=== PATIENT | male | born 2005 | race Caucasian/White ===

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

== ENCOUNTER 2024-08-20 17:10 | Emergency (ER) | payer BC, SELFPAY ==
--- NOTE | ~2024-08-20 | XR_ITS ---
HISTORY: hit with brady, posterior and lateral knee pain COMPARISON: None TECHNIQUE: 4 views of the right knee were performed FINDINGS: No acute or subacute fracture, erosion, lytic or sclerotic lesion. Medial tibiofemoral joint space narrowing is identified. Small suprapatellar joint effusion is identified. The infrapatellar joint space is clear. IMPRESSION: Small suprapatellar joint effusion, without acute fracture. Reviewed, dictated and finalized at location A. 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
[2024-08-20 17:19] VITALS: BP 145/73; PULSE 81; RESP 18; TEMP 37; O2SAT 100
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
== END 2024-08-20 18:45 | disposition home or self-care (01) ==
PROVIDERS: Emergency Provider Nurse Practitioner Family; PCP Family Medicine
DX: M25.461 Effusion, right knee (principal)
CPT/HCPCS: 73564; 99213; G0463

== ENCOUNTER 2024-08-23 11:26 | Emergency (ER) | payer BC, SELFPAY | END 2024-08-23 11:42 | disposition left against medical advice (07) | PROVIDERS: PCP Family Medicine | DX: M25.561 Pain in right knee (principal) | CPT/HCPCS: 99199 ==

== ENCOUNTER 2024-11-03 16:41 | Emergency (ER) | payer BC, SELFPAY ==
--- OUTSIDE RECORDS SUMMARY | 2024-11-03 16:45 | XMS_ITS | Clinical Summary ---
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 Social History Tobacco Use Types Packs/Day Years Used Date Smoking Tobacco: Never Smokeless Tobacco: Never Alcohol Use Standard Drinks/Week Comments Never 0 (1 standard drink = 0.6 oz pur e alcohol) Adolescent Education Answer Date Record ed Getting School Help Needed Not on file 05/11 Sex and Gender Information Value Date Recorded Sex Assigned at Not on file 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 Gender Identity Not on file Sexual Orientation Not on file Last Filed Vital Signs Vital Sign Reading Time Taken Comments Blood Pressure 112/58 02/21/2022 3:55 PM CDT Pulse 58 02/21/2022 3:55 PM CDT Temperature 37.1 ??C (98.7 ??F) 02/21/2022 3:55 PM CD T Respiratory Rate 16 02/21/2022 3:55 PM CDT Oxygen Saturation 97% 02/21/2022 3:55 PM CDT Inhaled Oxygen Concentration - - Weight 65.3 kg (144 lb) 02/21/2022 10:55 AM CDT Height 170.2 cm (5' 7 ) 02/21/2022 10:55 AM CDT Body Mass Index 22.55 02/21/2022 10:55 AM CDT Plan of Treatment Health Maintenance Due Date Last Done Comments CHLAMYDIA SCREENING (ANNUAL) 11-24 YEARS 2014 INFLUENZA VACCINE (#1) 2024 , 06/25/2019, 07/27/2016 DTAP/TDAP/TD VACCINES (7 - Td or Tdap) 07/17/2025 07/17/2015, 01/22/2008, 03/26/2005, Additional history exists HEPATITIS B VACCINES Completed 06/15/2004, 03/31/2004, 02/04/2004 PNEUMOCOCCAL VACCINE 0-64 YEARS Aged Out 03/26/2005, 09/11/2004, 03/31/2004, Additional history exists No longer eligible based on patient's age to complete this topic HPV VACCINES Completed 06/25/2019, 05/20/2018 Medical Devices Implanted Type Area Executive Chef Device Identifier Shelf Expiration Date Model / Serial / Lot Plate-L Lp Lt Med 0.6mm 50-377-04 - [id number] Implanted:Qty: 1 on 09/27/2021 by Jeremi Grant MD at [facility] Plate Left: Maxilla PHU CALVO 50-377-04- 91 / / Plate-L Lp Rt Med 0.6mm -375-04 - [id number] Implanted:Qty: 1 on 09/27/2021 by Jeremi Grant MD at [facility] Plate Right: Maxilla PHU CALVO 50-375-04- 91 / / Plate-L Mini 7h Rt 28-324-81-09 - [id number] Implanted:Qty: 1 on 09/27/2021 by Jeremi Grant MD at [facility] Plate Right: Maxilla PHU CALVO 50-405-07- 09 / / Plate-L Mini 7h Lt 50-407-07 - [id number] Implanted:Qty: 1 on 09/27/2021 by Jeremi Grant MD at [facility] Plate Left: Maxilla BRANDONS LUBNA 50-407-07- 09-OL / / Screw Sd Maxdr 2.0x5mm 25-879-05-1 - [id number] Implanted:Qty: 21 on 09/27/2021 by Jeremi Grant MD at [facility] Screw N/A: Maxilla BRANDONS LUBNA 879- / / Description:BILATERAL Screw Sd Maxdr 2.0x7mm -- - [id number] Implanted:Qty: 9 on 09/27/2021 by Jeremi Grant MD at [facility] Screw N/A: Maxilla BRANDONS LUBNA / / Description:BILATERAL Screw St Maxdr 2.0x9mm -- - [id number] Implanted:Qty: 1 on 09/27/2021 by Jeremi Grant MD at [facility] Screw N/A: Face BRANDONS [facility] / / Explanted Type Area Executive Chef Device Identifier Shelf Expiration Date Model / Serial / Lot Plate Sgtl Rgd Matthew Crv --36 - [id number] Implanted:Qty: 2 on 09/27/2021 by Jeremi Grant MD at [facility] Explanted:Qty: 2 on 02/21/2022 by Jeremi Grant MD at [facility] Plate N/A: Mandible BRANDONS LUBNA -3 / Description:BILATERAL Screw Sd Maxdr 2.0x7mm --1 - [id number] Implanted:Jeremi Du MD (Quantity not on file) Explanted:Qty: 2 on 09/27/2021 by Jeremi Grant MD at [facility] Screw N/A: Face BRANDONS LUBNA / / Description:BILATERAL Screw St Maxdr 2.0x9mm -09-1 - [id number] Implanted:Qty: 3 on 09/27/2021 by Jeremi Grant MD at [facility] Explanted:Qty: 3 on 02/21/2022 by Jeremi Grant MD at [facility] Screw N/A: Mandible BRANDONS LUBNA -872-0 / / Description:BILATERAL Insurance BCBS BLUE ACCESS/TRUE BLUE PPO RX [facility] [employer] BC[employer] BLUE ACCESS/TRUE BLUE PPO Advance Directives For more information, please contact: [phone] * Full Code (Latest Code Status on File) Date Activated Date Inactivated Comments 02/21/2022 1:21 PM 02/21/2022 6:11 PM * Full Code Date Activated Date Inactivated Comments 02/21/2022 12:19 PM 02/21/2022 1:20 PM * Full Code Date Activated Date Inactivated Comments 09/27/2021 9:10 PM 09/29/2021 1:05 PM * Full Code Date Activated Date Inactivated Comments 09/27/2021 12:02 PM 09/27/2021 9:10 PM Care Teams Pig Conveyor Operator Relationship Specialty Start Date End Date Husam López MD [address] [place] [address] PCP - General Family Practice 08/23/21
--- OUTSIDE RECORDS SUMMARY | 2024-11-03 16:45 | XMS_ITS | Clinical Summary ---
Author Organization [facility] Address [address] [place] [address]. [place] [address] [place] [address] Care Team Providers Care Sales/Marketing Name Role Phone Husam López MD Primary Care Provider Encounters Date Type Department Care Team Description 08/03/2024 8:30 AM CDT Office Visit [facility] Audiology [address] [place] [address] Ari Fani, AUD Hearing Problem 08/03/2024 Travel from Last 3 Months Social History Tobacco Use Types Packs/Day Years Used Date Smoking Tobacco: Never Assessed Sex and Gender Information Value Date Recorded Sex Assigned at Not on file Legal Sex Male 9:06 AM CDT Gender Identity Not on file Sexual Orientation Not on file Plan of Treatment Health Maintenance Due Date Last Done Comments Annual Physical 2006 Meningococcal B Vaccine (1 of 2 - Standard) 2019 Hepatitis C 2021 COVID-19 Vaccine (3 - season) 2024 02/06/2021, 01/13/2021 DTaP, Tdap and Td Vaccines (7 - Td or Tdap) 07/17/2025 07/17/2015, 01/22/2008, 03/26/2005, Additional history exists Hepatitis B Vaccines Completed 06/15/2004, 03/31/2004, 02/04/2004 Pneumococcal Vaccine: Pediatrics (0 to 5 Years) and At-Risk Patients (6 to 64 Years) Aged Out 03/26/2005, 09/11/2004, 03/31/2004, Additional history exists No longer eligible based on patient's age to complete this topic HPV Vaccines Completed 06/25/2019, 05/20/2018 Meningococcal Vaccine Completed 12/27/2020, 015 Influenza Adult Completed 06/30/2024, 12/06, 06/25/2019, Additional history exists RSV Immunizations Under 20 Months Aged Out No longer eligible based on patient's age to complete this topic Care Teams Sales/Marketing Relationship Specialty Start Date End Date Husam López MD [address] [place] [address] [address] [place] [phone] PCP - General FAMILY PRACTICE 08/03/24
--- OUTSIDE RECORDS SUMMARY | 2024-11-03 16:45 | XMS_ITS | Encounter Summary ---
Author Organization [facility] Address [address] [place] [address] Care Team Providers Care Roll Weigher Name Role Phone Husam López MD Primary Care Provider Encounter Details Date Type Department Care Team (Late st Contact Info) Description 09/27/2021 Lab Requisition [facility] General Laboratory Services [facility] [address] [place] [address] [place] [address] [facility] [address] [place] [address] Encounter for general adult medical examination without abnormal findings Social History Tobacco Use Types Packs/Day Years Used Date Smoking Tobacco: Never Smokeless Tobacco: Never Alcohol Use Standard Drinks/Week Comments Never 0 (1 standard drink = 0.6 oz pur e alcohol) Sex and Gender Information Value Date Recorded Sex Assigned at Not on file Legal Sex Male 4:38 PM [employer] Gender Identity Not on file Sexual Orientation Not on file COVID-19 Exposure Response Date Recorded In the last month, have you been in contact with someone who was confirmed or suspected to have Coronavirus / COVID-19? Unable to assess 09/27/2021 10:53 PM CS T documented as of this encounter Plan of Treatment Not on file documented as of this encounter Procedures Procedure Name Priority Date/Time Associated Diagnosis Comments SOURCE NEEDLESTICK PANEL Stat 09/27/2021 3:28 PM [employer] Encounter for general adult medical examination without abnormal findings EXPOSURE PANEL COMPLETION Stat 09/27/2021 3:28 PM [employer] Encounter for general adult medical examination without abnormal findings HIV DETECTION W/REFLX CONFIRMATION Stat 09/27/2021 3:28 PM [employer] Encounter for general adult medical examination without abnormal findings HEPATITIS C RNA PCR, QUANTITATIVE Stat 09/27/2021 3:28 PM [employer] Encounter for general adult medical examination without abnormal findings HEPATITIS B SURFACE ANTIGEN Stat 09/27/2021 3:28 PM D[employer] Encounter for general adult medical examination without abnormal findings documented in this encounter Results * EXPOSURE PANEL COMPLETION (09/27/2021 3:28 PM DINING CAR [employer]EWARD) EXPOSURE PANEL RECEIVED Yes 09/27/2021 6:33 PM DINING [employer]ARD [facility] Blood 09/27/2021 3:28 PM [employer]ING [employer] 09/27/2021 5:46 PM D[employer]ING [employer]ARD Lemuel Garcia MD CHEMISTRY ORDERABLES Final R esult [facility] CLIA# [id number] [address] [place] [address] * HEPATITIS B SURFACE ANTIGEN (09/27/2021 3:28 PM D[employer]ING [employer]ARD) HEPATITIS B SURFACE AG NON-REACTI VE Non-reacti ve 09/27/2021 6:35 PM [employer] [facility] Blood 09/27/2021 3:28 PM [employer] 09/27/2021 5:46 PM [employer] Lemuel Garcia MD CHEMISTRY ORDERABLES Final R esult [facility] CLIA# [id number] [address] [address] * HEPATITIS C RNA PCR, QUANTITATIVE (09/27/2021 3:28 PM DINING CAR STEWARD) [facility] HEPATITIS C RNA PCR, QUANT Undetected Undetected IU/mL 09/29/2021 3:21 PM DINING [employer]EWARD [facility] Comment: Result in log IU/mL is Undetected. ADDITIONAL INFORMATION The quantification range of this assay is 15 to 100,000,000 IU/mL (1.18 log to 8.00 log IU/mL). Testing was performed using the lolis HCV test ([employer] with the lolis dynaTrace software0 System. Test Performed by: [facility] [address] [place] [address] Web User Experience Strategist: Chance Dixon M.D. Ph.D.; CLIA# [id number] Blood 09/27/2021 3:28 PM D[employer]ING [employer]ARD 09/27/2021 5:46 PM D[employer]ING [employer]ARD Lemuel Garcia MD CHEMISTRY ORDERABLES Final R esult [facility] * HIV DETECTION W/REFLX CONFIRMATION (09/27/2021 3:28 PM DINING CAR [employer]EWARD) [facility] HIV-1 AND 2 ABS AND HIV-1 AG Non-reacti ve Non-reacti ve 09/27/2021 6:35 PM DINING [employer]ARD [facility] Blood Venipuncture / Unknown 09/27/2021 3:28 PM D[employer]ING [employer]EWARD 09/27/2021 5:46 PM DINING CAR STEWARD Narrative [facility] - 09/27/2021 6:35 PM DINING [employer]EWARD Initial HIV testing was performed by [employer] on the Stephany Lolis e602 module. Values obtained with different assay methods cannot be used interchangeably. Non- Reactive results does not rule out HIV infection. If acute HIV-1 infection is suspected, submit plasma specimen for HIV-1 RNA quantification test (HIVQU). Lemuel Garcia MD CHEMISTRY ORDERABLES Final R esult [facility]# [id number] [address] [place] [address] documented in this encounter Visit Diagnoses Diagnosis Encounter for general adult medical examination without abnormal findings Routine general medical examination at a health care facility documented in this encounter Care Teams Roll Weigher Relationship Specialty Start Date End Date Husam López MD [address] [place] [id number] PCP - General Family Practice 08/23/21 documented as of this encounter
[2024-11-03 16:48] VITALS: BP 148/73; PULSE 69; RESP 18; TEMP 37.1; O2SAT 99
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
== END 2024-11-03 17:55 | disposition home or self-care (01) ==
PROVIDERS: Emergency Provider Nurse Practitioner Family; PCP Family Medicine
DX: S61.212A Laceration without foreign body of right middle finger without damage to nail, initial encounter (principal); X58.XXXA Exposure to other specified factors, initial encounter
CPT/HCPCS: 12001; 99212; G0463; J2003

== ENCOUNTER 2025-07-14 18:57 | Emergency (ER) | payer BC, SELFPAY ==
[2025-07-14 19:05] VITALS: BP 143/80; PULSE 70; RESP 16; TEMP 36.6; O2SAT 100
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
== END 2025-07-14 19:33 | disposition home or self-care (01) ==
PROVIDERS: PCP Family Medicine
DX: L72.0 Epidermal cyst (principal)
CPT/HCPCS: 10060; 87070; 87075; 99213; G0463; J2003